=== PATIENT | male | born 1990 | race Caucasian/White ===

== ENCOUNTER 2019-02-10 13:23 | Emergency (ER) | payer MEDICAID, OTHER ==
[~2019-02-10] VITALS: Ht 182.9 cm; Wt 83.9 kg
--- NOTE | 2019-02-10 13:31 | ED EENT ---
History of Present Illness General Stated Complaint: SYNCOPE Source: patient Exam Limitations: no limitations History of Present Illness Date Seen by Provider: Feb 10, 2019 Time Seen by Provider: 13:28 Initial Comments [facility] Patient had been feeling ill for an hour or 2, generally weak, sweaty, lightheaded. States that he hasn't eaten anything all day and has been working out in the heat. He was at a gas station in [place] when he collapsed, on his way down he struck his Dominic's apple on concrete edge. Complains of some difficulty swallowing but that is getting better. EMS initi ated IV fluids and he is overall feeling much better than he did before arrival. Severity: moderate Location: throat Prearrival Treatment: no prearrival treatment Associated Symptoms: other Allergies and Home Medications Allergies Coded Allergies: No Known Drug Allergies (Unverified , 02/10/19) Patient Home Medication List Home Medication List Reviewed: Yes Review of Systems Review of Systems Constitutional: see HPI Eyes: No Symptoms Reported Ears: No Symptoms Reported Nose: no symptoms reported Mouth: no symptoms reported Throat: see HPI Respiratory: no symptoms reported Cardiovascular: no symptoms reported Musculoskeletal: no symptoms reported Physical Exam Vital Signs Vital Signs - First Documented 02/10/19 02/10/19 13:23 14:42 Temp 101.0 Pulse 88 Resp 18 B/P (MAP) 118/76 (90) Pulse Ox 99 O2 Delivery Room Air Height, Weight, BMI Height: '" Weight: lbs. oz. kg; BMI Method: General Appearance: WD/WN, no apparent distress, other (no bruising or abrasions anywhere, no erythema or signs of fall/head injury or facial injury. ) Eyes: bilateral eye normal inspection, bilateral eye PERRL, bilateral eye EOMI Ears: bilateral ear auricle normal, bilateral ear canal normal, bilateral ear TM normal Mouth/Throat: normal mouth inspection, pharynx normal Neck: non-tender, full range of motion Respiratory: no respiratory distress, no accessory muscle use Gastrointestinal: normal bowel sounds, non tender, soft Neurologic/Psychiatric: alert, normal mood/affect, oriented x 3 Skin: normal color, warm/dry Progress/Results/Core Measures Results/Orders Lab Results Laboratory Tests Test 02/10/19 13:27 Range/Units White Blood Count 7.8 4.3-11.0 10^3/uL Red Blood Count 4.68 4.35-5.85 10^6/uL Hemoglobin 14.2 13.3-17.7 G/DL Hematocrit 42 40-54 % Mean Corpuscular Volume 91 80-99 FL Mean Corpuscular Hemoglobin 30 25-34 PG Mean Corpuscular Hemoglobin Concent 34 32-36 G/DL Red Cell Distribution Width 13.2 10.0-14.5 % Platelet Count 207 130-400 10^3/uL Mean Platelet Volume 9.7 7.4-10.4 FL Neutrophils (%) (Auto) 84 H 42-75 % Lymphocytes (%) (Auto) 8 L 12-44 % Monocytes (%) (Auto) 8 0-12 % Eosinophils (%) (Auto) 0 0-10 % Basophils (%) (Auto) 0 0-10 % Neutrophils # (Auto) 6.6 1.8-7.8 X 10^3 Lymphocytes # (Auto) 0.6 L 1.0-4.0 X 10^3 Monocytes # (Auto) 0.6 0.0-1.0 X 10^3 Eosinophils # (Auto) 0.0 0.0-0.3 10^3/uL Basophils # (Auto) 0.0 0.0-0.1 10^3/uL Neutrophils % (Manual) 76 % Lymphocytes % (Manual) 16 % Monocytes % (Manual) 4 % Eosinophils % (Manual) 1 % Band Neutrophils 3 % Blood Morphology Comment N Sodium Level 142 135-145 MMOL/L Potassium Level 4.2 3.6-5.0 MMOL/L Chloride Level 106 98-107 MMOL/L Carbon Dioxide Level 24 21-32 MMOL/L Anion Gap 12 5-14 MMOL/L Blood Urea Nitrogen 10 7-18 MG/DL Creatinine 1.07 0.60-1.30 MG/DL Estimat Glomerular Filtration Rate > 60 BUN/Creatinine Ratio 9 Glucose Level 84 70-105 MG/DL Calcium Level 9.0 8.5-10.1 MG/DL Corrected Calcium 8.8 8.5-10.1 MG/DL Total Bilirubin 0.7 0.1-1.0 MG/DL Aspartate Amino Transf (AST/SGOT) 11 5-34 U/L Alanine Aminotransferase (ALT/SGPT) 16 0-55 U/L Alkaline Phosphatase 43 40-136 U/L Total Protein 6.5 6.4-8.2 GM/DL Albumin 4.3 3.2-4.5 GM/DL Serum Alcohol < 10 <10 MG/DL My Orders Orders - MARAL GARCIA ACCOUNTING REPRESENTATIVE Cbc With Automated Diff (02/10/19 13:26) Comprehensive Metabolic Panel (02/10/19 13:26) Ua Culture If Indicated (02/10/19 13:26) Alcohol (02/10/19 13:26) Ed Iv/Invasive Line Start (02/10/19 13:26) Ekg Tracing (02/10/19 13:31) Drug Screen Stat (Urine) (02/10/19 13:33) Manual Differential (02/10/19 13:27) Ct Head Wo (02/10/19 13:26) Ct Neck (Soft Tissue) W (02/10/19 ) Iohexol Injection (Omnipaque 350 Mg/Ml 1 (02/10/19 14:00) Received Contrast (Hold Metformin- Contr (02/10/19 14:00) Sodium Chloride Flush (Catheter Flush Sy (02/10/19 14:00) Ns (Ivpb) (Sodium Chloride 0.9% Ivpb Bag (02/10/19 14:00) Ibuprofen Tablet (Motrin Tablet) (02/10/19 14:45) Monotest (02/10/19 14:43) Medications Given in ED Current Medications Medications Dose Ordered Sig/Tati Route Start Time Stop Time Status Last Admin Dose Admin Iohexol 100 ml ONCE ONCE IV 02/10/19 14:00 02/10/19 14:01 DC 02/10/19 14:03 75 ML Sodium Chloride 10 ml NEEDED PRN IV 02/10/19 14:00 02/10/19 14:03 10 ML Sodium Chloride 100 ml ONCE ONCE IV 02/10/19 14:00 02/10/19 14:01 DC 02/10/19 14:03 80 ML Vital Signs/I&O 02/10/19 02/10/19 13:23 14:42 Temp 101.0 Pulse 88 Resp 18 B/P (MAP) 118/76 (90) Pulse Ox 99 O2 Delivery Room Air Diagnostic Imaging Diagonstic Imaging: CT Comments NAME: DEVON VACA [facility] REC#: [id number] PT STATUS: REG ER : 1990 PHYSICIAN: MARAL GARCIA APRN ADMIT DATE: 02/10/19/ER Draft Date of Exam:02/10/19 CT HEAD WO PROCEDURE: CT head without contrast. TECHNIQUE: Multiple contiguous axial images were obtained through the brain without the use of intravenous contrast. Auto Exposure Controls were utilized during the CT exam to meet ALARA standards for radiation dose reduction. INDICATION: Syncope. Fall. COMPARISON: 11/01/2011. FINDINGS: No CT evidence for territorial infarction. Benign-appearing CSF extra-axial fluid collection overlying the temporal lobes appears stable likely representing benign arachnoid cyst. No intracranial hemorrhage. No hydrocephalus. Osseous structures are intact. The visualized paranasal sinuses and mastoids are clear. IMPRESSION: No acute intracranial CT findings. Dictated on workstation # [id number] Dict: 02/10/19 1401 Trans: 02/10/19 1405 [facility] [id number] Interpreted by: JACK MORALES MD Electronically signed by: NAME: DEVON VACA [facility] REC#: [id number] PT STATUS: REG ER : 1990 PHYSICIAN: MARAL GARCIA APRN ADMIT DATE: 02/10/19/ER Draft Date of Exam:02/10/19 CT NECK (SOFT TISSUE) W PROCEDURE: CT neck soft tissue with contrast. TECHNIQUE: Multiple contiguous axial images were obtained through the neck after the administration of contrast. Auto Exposure Controls were utilized during the CT exam to meet ALARA standards for radiation dose reduction. INDICATION: Syncope, posterior neck pain. COMPARISON: None available. FINDINGS: No fracture of the hyoid. There is incomplete fusion of the left luis-aspect of the hyoid bone (image 72, series 7). The examination was performed via the soft tissue neck protocol which is not designed to evaluate the vasculature. Allowing for this, the vertebral and carotid arteries appear patent throughout the neck. Thyroid is normal. Submandibular and parotid glands are also normal. Lung apices are clear. No fracture of the visualized posterior upper ribs. No fracture in the cervical spine. Well-corticated ossicle at the tip of the C7 spinous process is chronic in nature. Base of the tongue appears normal. No discrete wall thickening in the pharynx or larynx. Parapharyngeal fat spaces are normal. No retropharyngeal fluid collection. IMPRESSION: 1. No fracture of the hyoid bone. 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 2. Airway is widely patent. Dictated on workstation # [id number] Dict: 02/10/19 1413 Trans: 02/10/19 1428 [facility] [id number] Interpreted by: NATANAEL SLAUGHTER MD Electronically signed by: Departure Communication (Admissions) He is not sure what happened but believes that his weakness is related to poor diet over the past week and a lot of stress. 1444-patient's temperature up to 101. He states overall feels better. We will give Motrin. He did report some pain with urinating, but thought it was because he was dehydrated. He does report some throat pain but states that only started after the fall and before that wasn't having any throat discomfort. No cough or shortness of breath. No abdominal pains. No back pain and posterior neck pain or headache. Impression Primary Impression: Syncope Qualified Codes: R55 - Syncope and collapse Additional Impression: Febrile illness Disposition: 01 HOME, SELF-CARE Condition: Stable Departure-Patient Inst. Decision time for Depature: 14:34 Referrals: UNKNOWN (PCP/Family) Primary Care Physician Patient Instructions: Syncope (Fainting) Add. Discharge Instructions: 1. Return to ER for any concerns 2. FOllow up with your doctor next week 3. Drink plenty of fluids in the next few days MARAL GARCIA APRN Feb 10, 2019 13:31
[2019-02-10 13:41] LABS: BASOPHILS % (AUTO) 0 % (0-10); EOSINOPHILS % (AUTO) 0 % (0-10); HEMATOCRIT 42 % (40-54); HEMOGLOBIN 14.2 G/DL (13.3-17.7); LYMPHOCYTES # (AUTO) 0.6 X 10^3 (1.0-4.0); LYMPHOCYTES % (AUTO) 8 % (12-44); MEAN CORPUSCULAR HEMOGLOBIN 30 PG (25-34); MEAN CORPUSCULAR HGB CONC 34 G/DL (32-36); MEAN CORPUSCULAR VOLUME 91 FL (80-99); MEAN PLATELET VOLUME 9.7 FL (7.4-10.4); MONOCYTES # (AUTO) 0.6 X 10^3 (0.0-1.0); MONOCYTES % (AUTO) 8 % (0-12); NEUTROPHILS # (AUTO) 6.6 X 10^3 (1.8-7.8); NEUTROPHILS % (AUTO) 84 % (42-75); PLATELET COUNT 207 10^3/uL (130-400); RED CELL DISTRIBUTION WIDTH 13.2 % (10.0-14.5); WHITE BLOOD COUNT 7.8 10^3/uL (4.3-11.0)
[2019-02-10] MEDS ORDERED: ALPR0.254 (13:46)
[2019-02-10 13:58] LABS: ALANINE AMINOTRANSFERASE 16 U/L (0-55); ALBUMIN 4.3 GM/DL (3.2-4.5); ALKALINE PHOSPHATASE 43 U/L (40-136); BILIRUBIN,TOTAL 0.7 MG/DL (0.1-1.0); BUN/CREATININE RATIO 9; CARBON DIOXIDE 24 MMOL/L (21-32); CHLORIDE 106 MMOL/L (98-107); CREATININE SERUM 1.07 MG/DL (0.60-1.30); GFR ESTIMATED > 60; GLUCOSE 84 MG/DL (70-105); POTASSIUM 4.2 MMOL/L (3.6-5.0); SODIUM 142 MMOL/L (135-145); TOTAL PROTEIN 6.5 GM/DL (6.4-8.2)
[2019-02-10] MEDS ORDERED: HOLD METFORMIN - RECEIVED CONTRAST 20 ML VIAL IV SCH (14:00)
[2019-02-10] MEDS ORDERED: IOHEXOL 350 MG/ML 100 ML (OMNIPAQUE 350) VIAL IV ONE (14:00)
[2019-02-10] MEDS ORDERED: NS 100 ML (IVPB) BAG IV ONE (14:00)
[2019-02-10] MEDS ORDERED: CATHETER FLUSH 10 ML SYR IV PRN (14:00)
[2019-02-10 14:02] LABS: BAND NEUTROPHILS 3 %; EOSINOPHILS % (MANUAL) 1 %; LYMPHOCYTES % (MANUAL) 16 %; MONOCYTES % (MANUAL) 4 %; NEUTROPHILS % (MANUAL) 76 %
[2019-02-10 14:03] LABS: RBC MORPH N
--- NOTE | 2019-02-10 14:05 | Diagnostic Imaging Report ---
PROCEDURE: CT head without contrast. TECHNIQUE: Multiple contiguous axial images were obtained through the brain without the use of intravenous contrast. Auto Exposure Controls were utilized during the CT exam to meet ALARA standards for radiation dose reduction. INDICATION: Syncope. Fall. COMPARISON: 11/01/2011. FINDINGS: No CT evidence for territorial infarction. Benign-appearing CSF extra-axial fluid collection overlying the temporal lobes appears stable likely representing benign arachnoid cyst. No intracranial hemorrhage. No hydrocephalus. Osseous structures are intact. The visualized paranasal sinuses and mastoids are clear. IMPRESSION: No acute intracranial CT findings. Dictated by: Dictated on workstation # [id number]
--- NOTE | 2019-02-10 14:28 | Diagnostic Imaging Report ---
PROCEDURE: CT neck soft tissue with contrast. TECHNIQUE: Multiple contiguous axial images were obtained through the neck after the administration of contrast. Auto Exposure Controls were utilized during the CT exam to meet ALARA standards for radiation dose reduction. INDICATION: Syncope, posterior neck pain. COMPARISON: None available. FINDINGS: No fracture of the hyoid. There is incomplete fusion of the left luis-aspect of the hyoid bone (image 72, series 7). The examination was performed via the soft tissue neck protocol which is not designed to evaluate the vasculature. Allowing for this, the vertebral and carotid arteries appear patent throughout the neck. Thyroid is normal. Submandibular and parotid glands are also normal. Lung apices are clear. No fracture of the visualized posterior upper ribs. No fracture in the cervical spine. Well-corticated ossicle at the tip of the C7 spinous process is chronic in nature. Base of the tongue appears normal. No discrete wall thickening in the pharynx or larynx. Parapharyngeal fat spaces are normal. No retropharyngeal fluid collection. IMPRESSION: 1. No fracture of the hyoid bone. 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 2. Airway is widely patent. Dictated by: Dictated on workstation # [id number]
--- NOTE | 2019-02-10 14:28 | NUR ---
EMS FLUIDS INFUSED.
[2019-02-10] MEDS ORDERED: IBUPROFEN 800 MG (MOTRIN) TAB PO ONE (14:45)
--- NOTE | 2019-02-10 14:49 | NUR ---
FAMILY STANDING IN [place] ASKED TO GO BACK TO ROOM. OR WAITNG ROOM 6 FAMILY MEMBERS WITH PATIENT.
[2019-02-10 14:54] LABS: BILIRUBIN,URINE NEGATIVE (NEGATIVE); CLARITY,URINE CLEAR; COLOR,URINE YELLOW; GLUCOSE, URINE (UA) NEGATIVE (NEGATIVE); KETONES,URINE NEGATIVE (NEGATIVE); LEUKOCYTE ESTERASE ,URINE NEGATIVE (NEGATIVE); NITRITE,URINE NEGATIVE (NEGATIVE); PH,URINE 8 (5-9); PROTEIN,URINE 1+ (NEGATIVE); UROBILINOGEN,URINE NORMAL (NORMAL)
[2019-02-10 15:13] LABS: BACTERIA,URINE NEGATIVE /HPF; HYALINE CASTS, URINE RARE /LPF; SQUAMOUS EPITHELIAL CELL,UR RARE /HPF
[2019-02-10 15:14] LABS: AMPHETAMINE SCREEN, URINE NEGATIVE (NEGATIVE); BENZODIAZEPINES SCREEN URINE NEGATIVE (NEGATIVE); CANNABINOID SCREEN, URINE POSITIVE (NEGATIVE); COCAINE SCREEN URINE NEGATIVE (NEGATIVE)
[2019-02-10 15:15] LABS: BARBITURATE SCREEN URINE NEGATIVE (NEGATIVE); METHADONE STAT NEGATIVE (NEGATIVE); METHAMPHETAMINE SCREEN URINE S NEGATIVE (NEGATIVE); OPIATE SCREEN URINE NEGATIVE (NEGATIVE); OXYCODONE STAT NEGATIVE (NEGATIVE); PROPOXYPHENE STAT NEGATIVE (NEGATIVE); TRICYCLIC ANTIDEPRESSANTS SCRE NEGATIVE (NEGATIVE)
[2019-02-10 15:23] VITALS: BP 118/76
--- OUTSIDE RECORDS SUMMARY | 2019-02-10 22:46 | XMS REPORT ---
Author Author FELIZ HOLT Organization [employer] Address Unknown Phone Unavailable Care Team Providers Care Site Surveyor Name Role Phone FELIZ HOLT CP Unavailable Allergies, Adverse Reactions, Alerts Substance Reaction Event Type N.K.D.A. Info Not Available Non Drug Allergy Problems Problem Type Condition Code Onset Dates Condition Status Assessment Scabies B86 Active Medications Medication Code System Code Instructions Start Date End Date Status Dosage Permethrin [facility] [address]-34 5 % Externally one time Mar 01, 2016 apply to entire body Procedures Procedure Coding System Code Date Office Visit, Est Pt., Level 3 CPT-4 23596 Mar 01, 2016 Vital Signs Date/Time: Mar 01, 2016 Cardiac Monitoring Heart Rate 84 bpm Weight 193.7 lbs Height 71 in BMI 27.01 Index Blood Pressure Diastolic 80 mmHg Blood Pressure Systolic 126 mmHg Results No Known Results Summary Purpose [employer] Submission
--- OUTSIDE RECORDS SUMMARY | 2019-02-10 22:46 | XMS REPORT ---
Author Author FELIZ HOLT Organization [facility] Address [address] [place] [address] Care Team Providers Care Inclusion Specialist Name Role Phone FELIZ HOLT Unavailable PROBLEMS Unknown Problems ALLERGIES Substance Reaction Event Type Date Status N.K.D.A. Unknown Non Drug Allergy Jun, Unknown SOCIAL HISTORY No smoking Hx information available PLAN OF CARE Activity Details Follow Up prn Reason: VITAL SIGNS Height 71 in 2016-07-06 Weight 187.2 lbs 2016-07-06 Temperature 98.7 degrees Fahrenheit 2016-07-06 Heart Rate 80 bpm 2016-07-06 Respiratory Rate 16 2016-07-06 BMI 26.11 kg/m2 2016-07-06 Blood pressure systolic 120 mmHg 2016-07-06 Blood pressure diastolic 80 mmHg 2016-07-06 MEDICATIONS Medication Instructions Dosage Frequency Start Date End Date Duration Status Amoxicillin 500 MG Orally every 12 hrs 1 tablet 12h Jun, Jul, 10 day(s) Active RESULTS Name Result Date Reference Range STREP A (IN HOUSE) 2016-07-06 STREP A Neg Control Valid Lot # [id number] Exp date 01/07/2018 PROCEDURES Procedure Date Ordered Related Diagnosis Body Site Office Visit, Est Pt., Level 3 Jul 06, 2016 STREP A ASSAY W/OPTIC Jul 06, 2016 IMMUNIZATIONS No Known Immunizations
--- OUTSIDE RECORDS SUMMARY | 2019-02-10 22:46 | XMS REPORT ---
Author Author TK NEVES Organization [facility] [address] Address [address] [place] [address] Care Team Providers Care Management Supervisor Name Role Phone TK NEVES Unavailable PROBLEMS Type Condition ICD9-CM Code IVT38-YO Code Onset Dates Condition Status SNOMED Code Problem Anxiety F41.9 Active 81288560 ALLERGIES No Known Allergies ENCOUNTERS Encounter Location Date Diagnosis [facility] [address] [place] [id number] Feb, Anxiety F41.9 [facility] [address] [place] [phone] Jun, Other specified bacterial agents as the cause of diseases classified elsewhere B96.89 ; Acute tonsillitis due to other specified organisms J03.80 and Acute viral conjunctivitis of right eye B30.9 [facility] [address] [place] [phone] Feb, Scabies B86 [address] [phone] Mar, Rash 782.1 ; Anxiety 300.00 and Panic attack 300.01 IMMUNIZATIONS No Known Immunizations SOCIAL HISTORY Never Assessed REASON FOR VISIT having a lot of anxiety especially when at work-[employer] PLAN OF CARE Activity Details Follow Up 2 Weeks Reason: VITAL SIGNS Height 71 in 2018-03-09 Weight 182.0 lbs 2018-03-09 Temperature 98.2 degrees Fahrenheit 2018-03-09 Heart Rate 78 bpm 2018-03-09 Respiratory Rate 16 2018-03-09 BMI 25.38 kg/m2 2018-03-09 Blood pressure systolic 120 mmHg 2018-03-09 Blood pressure diastolic 70 mmHg 2018-03-09 MEDICATIONS Medication Instructions Dosage Frequency Start Date End Date Duration Status Prozac 20 MG Orally Once a day 1 capsule in the morning 24h Mar, 30 day(s) Not-Taking Fluoxetine HCl 10 mg Orally Once a day 1 capsule for 10 days then increase to 2 capsules daily 24h Feb, 30 day(s) Active Fluoxetine HCl 20 mg Orally Once a day 1 capsule 24h Feb, 30 day(s) Active Permethrin 5 % Externally one time apply to entire body Feb, Not-Taking Xanax 0.25 MG Orally Twice a day as needed for panic attacks 1 tablet Feb, Active RESULTS No Results PROCEDURES No Known procedures INSTRUCTIONS MEDICATIONS ADMINISTERED No Known Medications MEDICAL (GENERAL) HISTORY Type Description Date Surgical History facial cosmetic surgery; broken nose 2008 Surgical History oral surgery 2015 Hospitalization History surgeries
--- OUTSIDE RECORDS SUMMARY | 2019-02-10 22:46 | XMS REPORT ---
Author Author TK NEVES Organization [employer] Address Unknown Phone Unavailable Care Team Providers Care Prescriptionist Name Role Phone KT NEVES CP Unavailable Allergies, Adverse Reactions, Alerts Substance Reaction Event Type N.K.D.A. Info Not Available Non Drug Allergy Problems Problem Type Condition ICD-9 Code Onset Dates Condition Status Assessment Anxiety 300.00 Active Assessment Panic attack 300.01 Active Assessment Rash 782.1 Active Medications Medication Code System Code Instructions Start Date End Date Status Dosage Permethrin [facility] [address]-59 5 % Externally apply from neck to feet at night. Wash off 8-12 hours later in morning. Mar 24, 2015 Mar 26, 2015 as directed and repeat in 14 days Prozac [facility] [address]-64 20 MG Orally Once a day Mar 24, 2015 1 capsule in the morning Procedures Procedure Coding System Code Date Office Visit, Est Pt., Level 3 CPT-4 09182 Mar 24, 2015 Vital Signs Date/Time: Mar 24, 2015 Temperature 98.2 F Weight 196.2 lbs Height 71 in BMI 27.36 Index Blood Pressure Diastolic 90 mmHg Blood Pressure Systolic 140 mmHg Cardiac Monitoring Heart Rate 66 bpm Results No Known Results Summary Purpose [employer] Submission
== END 2019-02-10 15:23 | disposition home or self-care (01) ==
LOC: EDUNIT# 13:23 → ER 13:26
DX: R55 Syncope and collapse (principal); R50.9 Fever, unspecified
CPT/HCPCS: 36415; 70450; 70491; 80053; 80306; 80320; 81000; 85007; 85027; 86308; 86618; 86666; 86668; 86757; 86788; 86789; 93005